=== PATIENT | male | born 1960 | race Caucasian/White ===

== ENCOUNTER 2016-11-10 20:21 | Emergency (ER) | payer BC ==
[~2016-11-10] VITALS: Ht 170.2 cm; Wt 63.2 kg
[~2016-11-10 20:21] MED LIST: AMLODIPINE BESYL5 MG PO; ASPIR 8181 M1 PO; AUGMENTIN875 MG PO; AZOR 5/20 MG1 TABLET PO; Colace PO; MIRALAX255 GM PO; POLYETHYLENE G255 GM PO; VITAMIN C100 MG/1 M PO; Vitamin-E PO
[2016-11-10 20:53] LABS: HEMATOCRIT 44.6 % (38.0-50.0); MCH 28.7 PG (29.0-34.0); MCHC 33.2 G/DL (30.0-36.0); MCV 86.4 FL (86-99); MEAN PLAT.VOLUME 11.2 uM^3 (9.0-12.4); PLATELET COUNT 193 K/uL (156-360); RBC DIS.WIDTH-CV 12.2 % (11.8-14.6); RBC DIS.WIDTH-SD 38.6 % (39-53); RED BLOOD COUNT 5.16 M/uL (4.00-5.50); WHITE BLOOD COUNT 6.1 K/uL (4.1-10.2)
[2016-11-10 21:03] LABS: CHLORIDE 107 mEq/L (99-109); POTASSIUM 3.9 mEq/L (3.7-5.4)
[2016-11-10 21:04] LABS: SODIUM 141 mEq/L (136-147)
[2016-11-10 21:05] LABS: GLUCOSE 96 mg/dL (70-99)
[2016-11-10 21:07] LABS: ANION GAP 9 MEQ/L (2-14)
[2016-11-10 21:09] LABS: GFR ESTIMATE (CALCULATED) > 59 mL/min/
[2016-11-10 21:10] LABS: UREA NITROGEN (BUN) 13 mg/dL (9-23)
[2016-11-10 21:15] LABS: TROP-I INTERPRETATION NEGATIVE; TROPONIN-I < 0.01 ng/mL (0.0-0.30)
[2016-11-11 00:18] VITALS: BP 118/81
== END 2016-11-11 00:28 | disposition home or self-care (01) ==
LOC: EME 20:21
DX: R07.9 Chest pain, unspecified (principal); J44.9 Chronic obstructive pulmonary disease, unspecified; F17.200 Nicotine dependence, unspecified, uncomplicated; K50.90 Crohn's disease, unspecified, without complications; F32.9 Major depressive disorder, single episode, unspecified
CPT/HCPCS: 71020; 71275; 80048; 84484; 85027; 93005; 99281; 99285; J2270; J7040